=== PATIENT | male | born 1975 | race Caucasian/White ===

== ENCOUNTER → 2018-08-07 09:17 | Outpatient (CLI) | payer OTHER, SELFPAY ==
--- NOTE | 2018-08-07 09:21 | US_ITS ---
STUDY: ABDOMINAL ULTRASOUND - RIGHT UPPER QUADRANT REASON FOR VISIT: Male, 43 years old. Elevated LFTs TECHNIQUE: Ultrasound evaluation of the right upper quadrant was performed with real-time and static wood-scale imaging. TECHNICAL QUALITY: Adequate. COMPARISON: None. FINDINGS: Liver: The liver measures 13 cm. There is increased echogenicity of the liver. The bile ducts are within normal limits. There is hepatic color flow. The direction of portal flow is hepatopetal. There is no demonstrated mass lesion. Gallbladder: Normal distended gallbladder. The gallbladder wall measures 2.4 mm. There is a negative sonographic Tsang's sign. There is no pericholecystic fluid. There are multiple polyps. Common Bile Duct (C.B.D.): The common bile duct measures 3.6 mm. Pancreas: Normal size of the head, body and tail of the pancreas. There is normal echogenicity of the pancreas. There is no demonstrated pancreatic mass or cyst. Right Kidney: Normal size of the right kidney. The right kidney measures 11.6 x 6 x 5.6 cm. Normal renal cortex. The right cortex measures 1.9 cm. There is no demonstrated renal mass or cyst. There is no right hydronephrosis. US/Liver IMPRESSION: Mild nonspecific fatty infiltration of the liver. Multiple gallbladder polyps If concern for significant gallbladder disease HIDA scan with CCK stimulation would be helpful for further assessment Electronically Signed: Azeem Anderson MD at 19:55 EDT , Service support ,
== END ==
PROVIDERS: Family Provider Nurse Practitioner; PCP Nurse Practitioner; Referring Provider Nurse Practitioner; Visit Provider Nurse Practitioner
DX: R74.8 Abnormal levels of other serum enzymes (principal); Z78.9 Other specified health status
CPT/HCPCS: 76705

== ENCOUNTER → 2018-08-18 13:10 | Outpatient (CLI) | payer OTHER, SELFPAY ==
[2018-08-18 13:40] LABS: PSA,Total- Diagnostic 3.86 ng/mL (0.0-4.0)
== END ==
PROVIDERS: Family Provider Nurse Practitioner; PCP Nurse Practitioner; Referring Provider Nurse Practitioner; Visit Provider Nurse Practitioner
DX: R97.20 Elevated prostate specific antigen [PSA] (principal)
CPT/HCPCS: 84153

== ENCOUNTER → 2019-06-11 13:49 | Outpatient (CLI) | payer OTHER, SELFPAY ==
--- NOTE | 2019-06-11 13:58 | RAD_ITS ---
STUDY: X-RAY CHEST REASON FOR EXAM: Male, 43 years old. Abnormal lung sounds TECHNIQUE: PA and lateral views of the chest. COMPARISON: None. FINDINGS: The lungs are clear and expanded. Scattered calcified granulomas. There is no demonstrated pleural abnormality. Normal size heart. Normal mediastinum and bernie. There is prominence of the pulmonary hilar arteries without peripheral pulmonary vascular congestion, suggesting pulmonary hypertension. Normal visualized aortic arch and descending thoracic aorta. Normal visualized thoracic spine. Normal visualized ribs, clavicles, and shoulders. There is no demonstrated abnormality of the visualized soft tissue structures of the upper abdomen. RAD/Chest PA and Lateral IMPRESSION: Prominence of the pulmonary arteries bilaterally. Scattered calcified granulomas. Electronically Signed: Ry Marrfuo, at 15:04 EST , Service support ,
== END ==
PROVIDERS: PCP Nurse Practitioner; Referring Provider Internal Medicine; Visit Provider Internal Medicine
DX: R09.89 Other specified symptoms and signs involving the circulatory and respiratory systems (principal)
CPT/HCPCS: 71046

== ENCOUNTER 2024-05-15 11:26 | Day surgery (SDC) | payer OTHER, SELFPAY ==
[2024-05-15] VITALS (9 sets, daily range): BP systolic 61–136; BP diastolic 49–82; PULSE 89–107; RESP 16; TEMP 36.2–36.6; O2SAT 94–98; BMI 32.8
--- NOTE | 2024-05-15 11:51 | PCM.HP.STD ---
[facility] - General General Date of Admission: 05/15/24 Date of Service: 05/15/24 Chief Complaint: screening colon HPI Narrative SAY AVALOS, is a 48 M who presents for screening colonoscopy. He has never had a colonoscopy in the past. He only takes testosterone, pantoprazole and aspirin on a daily basis. [facility] Medical History Wears contact lenses GERD (gastroesophageal reflux disease) HTN (hypertension) Home Medications ?Medication ?Instructions ?Recorded ?Last Taken ?Type aspirin 81 mg tablet,delayed 81 mg PO QDAY 02/27/24 05/14/24 History release (Adult Low Dose Aspirin) lisinopril 40 mg tablet 40 mg PO QDAY 02/27/24 Unknown History pantoprazole 40 mg tablet,delayed 40 mg PO QDAY 02/27/24 Unknown History release testosterone cypionate 200 mg/mL 200 mg IM QWEEK 05/12/24 Unknown History intramuscular oil Allergy/AdvReac Type Severity Reaction Status Date / Time No Known Allergies Allergy Verified 05/15/24 11:42 Social History household members: spouse current occupational status: employed Smoking Status: Never smoker substance use type: does not use ROS Constitutional Constitutional: Denies fatigue, fever(s), poor appetite, weight gain or weight loss Gastrointestinal Gastrointestinal: Denies belching, bloating, change in bowel habits, change in stool character, chewing difficulty, coffee ground emesis, constipation, cramping, diarrhea, dyspepsia, dysphagia, early satiety, excessive flatus, fecal incontinence, heartburn, hematemesis, hematochezia, hemorrhoids, loose stools, melena, nausea, odynophagia, rectal bleeding, tenesmus, vomiting or weight changes Vital Signs Vital Signs Vital Signs: 05/15/24 11:42 05/15/24 11:42 Temperature 97.2 F L Temperature Source Temporal Pulse Rate 101 H Respiratory Rate 16 Respiratory Pattern Normal Blood Pressure 136/82 H Blood Pressure Mean 100 Blood Pressure Source Monitor Blood Pressure Position Semi-Fowlers Blood Pressure Location Left Arm Pulse Ox 98 Oxygen Delivery Method Room Air Weight Weight: 235 lb 14.314 oz Body Mass Index (BMI) 32.8 Physical Exam Const alert, oriented x3, no apparent distress and healthy appearing General Appearance: cooperative GI normal to inspection, nondistended, normoactive bowel sounds, soft to palpation, non-tender and non-distended Percussion: normal to percussion Rectal Exam: deferred Assessment & Plan Assessment/Plan (1) Encounter for screening for malignant neoplasm of colon: PLAN: He was explained alternatives, benefits, risk including not withstanding bleeding, infection, sepsis, perforation, need for emergent urgent . He will have an ASA of 3.
--- NOTE | 2024-05-15 12:15 | PCM.PRE.AN2 ---
ASA Classification* ASA Classification ASA Classification: 2 Assessment & Plan Anesthesia* Anesthesia Assessment Anesthesia Assessment: Discussed sedation and/or anesthesia options, risks, benefits, and alternatives with patient/parents/legal guardian/POA. Questions invited. The patient/parents/legal guardian/POA seems to understand and agrees to proceed with anesthesia plan. Reviewed the physical assessment, medical history, allergy history and patient home medications list prior to surgery/procedure/anesthetic and documented any changes. Performed airway and anesthesia risk assessments. 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 When Was Last Pacemaker Check QUESTION #4 FULL TEXT: You/Your Family Experience fever (hyperthermia) with Anesthesia Last Oral Intake Last Oral intake: Last Oral Intake NPO since 07:00 05/15/24 11:42 Meds taken in AM with sips of water? Meds patient instructed to take am of surgery PONV PONV - electrical engineering designer: PONV - electrical engineering designer Female No 05/12/24 13:15 HX of Motion Sickness No 05/12/24 13:15 HX of N/V After Surgery No 05/12/24 13:15 Non-Smoker Yes 05/12/24 13:15 Duration of Surgery greater No 05/12/24 13:15 than 60 minutes Number of Risk Factors 1 05/12/24 13:15 PONV Score Low Risk 05/12/24 13:15 Height & Weight Height & Weight: Anesthesia: Height & Weight Height 5 ft 11 in 05/15/24 11:42 Weight: 107 kg 05/15/24 11:42 Body Mass Index (BMI) 32.8 05/15/24 11:42 Respiratory Assessment Respiratory Assessment - electrical engineering designer: Respiratory Tract Infection Hx - electrical engineering designer Hx Respiratory Tract Infection No 05/12/24 13:15 STOP Sleep Apnea STOP Sleep Apnea - electrical engineering designer: STOP Sleep Apnea - electrical engineering designer Hx Hypertension Yes: CONTROLLED WITH MEDS 05/12/24 13:15 Hx Sleep Apnea No 05/12/24 13:15 CPAP BIPAP Do you snore loudly (louder Yes 05/12/24 13:15 than talking or can be heard Do you often feel tired/ No 05/12/24 13:15 fatigued/ sleepy during daytime? Has anyone observed you stop Yes 05/12/24 13:15 breathing during sleep? STOP Results Positive 05/12/24 13:15 QUESTION #5 FULL TEXT : Do you snore loudly (louder than talking or can be heard through closed doors)? Tobacco Use History Tobacco Use History - electrical engineering designer: Tobacco Use History - electrical engineering designer Tobacco Use Smoking Status Never smoker 05/12/24 13:15 Hx Tobacco Use No 05/12/24 13:15 Years Smoking Packs Smoked per Day Smoking Cessation Date was within the last 15 years Hx Smoking Cessation Date Hx Smoking Cessation Counseling Hematologic Medial History Hematologic Hx - electrical engineering designer: Hematologic Medical Hx - laboratory miller Hx of Blood Transfusion No 05/12/24 13:15 Hx of Transfusion in last 3 No 05/12/24 13:15 Months Date of Last Transfusion (if within last 3 months) Ever experience any problems No 05/12/24 13:15 with transfusion(s)? Specify any problems Hx of Preganancy in last 3 N/A 05/12/24 13:15 Months Nurse Filling Out Transfusion [id number] 05/12/24 13:15 & Questions: Date: 05/12/24 05/12/24 13:15 Time: 13:18 05/12/24 13:15 Patient unable to answer at this time (ie. confused, unrespo /Reproduction History /Reproductive History - electrical engineering designer: /Reproductive Hx- electrical engineering designer Hx Now Gestational Age (in weeks): EDC: Hx Hx Para Hx Section SAB PFSH Medical History Wears contact lenses GERD (gastroesophageal reflux disease) HTN (hypertension) Home Medications ?Medication ?Instructions ?Recorded ?Last Taken ?Type aspirin 81 mg tablet,delayed 81 mg PO QDAY 02/27/24 05/14/24 History release (Adult Low Dose Aspirin) lisinopril 40 mg tablet 40 mg PO QDAY 02/27/24 Unknown History pantoprazole 40 mg tablet,delayed 40 mg PO QDAY 02/27/24 Unknown History release testosterone cypionate 200 mg/mL 200 mg IM QWEEK 05/12/24 Unknown History intramuscular oil Allergy/AdvReac Type Severity Reaction Status Date / Time No Known Allergies Allergy Verified 05/15/24 11:42 Social History household members: spouse current occupational status: employed Smoking Status: Never smoker substance use type: does not use Review of Systems (Anesthesia) ROS Narrative System reviewed and no additional complaints, except as documented.
--- NOTE | 2024-05-15 13:07 | OP.COLON_ITS ---
Patient Name: Lopez Boston Procedure Date: 05/15/2024 12:34 PM Date of : 1975 Age: 48 Procedure: Colonoscopy Indications: Screening for colorectal malignant neoplasm Providers: Andi Alcaraz DO Referring MD: Arnel Membreno Medicines: Monitored Anesthesia Care Patient Profile: This is a 48 year old male. Refer to note in patient chart for documentation of history and physical. Last Colonoscopy: none. The patient's first colonoscopy is today. Complications: No immediate complications. Procedure: Pre-Anesthesia Assessment: - Prior to the procedure, a History and Physical was performed, and patient medications and allergies were reviewed. The patient is competent. The risks and benefits of the procedure and the sedation options and risks were discussed with the patient. All questions were answered and informed consent was obtained. Patient identification and proposed procedure were verified in the pre-procedure area. Mental Status Examination: alert and oriented. Airway Examination: normal oropharyngeal airway and neck mobility. Respiratory Examination: clear to auscultation. CV Examination: normal. Prophylactic Antibiotics: The patient does not require prophylactic antibiotics. Prior Anticoagulants: The patient has taken no anticoagulant or antiplatelet agents except for NSAID medication. ASA Grade Assessment: II - A patient with mild systemic disease. After reviewing the risks and benefits, the patient was deemed in satisfactory condition to undergo the procedure. The anesthesia plan was to use monitored anesthesia care (MAC). Immediately prior to administration of medications, the patient was re-assessed for adequacy to receive sedatives. The heart rate, respiratory rate, oxygen saturations, blood pressure, adequacy of pulmonary ventilation, and response to care were monitored throughout the procedure. The physical status of the patient was re-assessed after the procedure. After I obtained informed consent, the scope was passed under direct vision. Throughout the procedure, the patient's blood pressure, pulse, and oxygen saturations were monitored continuously. The Colonoscope was introduced through the anus and advanced to the cecum, identified by appendiceal orifice and ileocecal valve. The colonoscopy was performed without difficulty. The patient tolerated the procedure well. The ileocecal valve, appendiceal orifice, and rectum were photographed. Scope In: 12:42:36 PM Scope Withdrawal Time 0 hours 13 minutes 34 seconds Scope Out: 12:59:29 PM Total Procedure Duration Time 0 hours 16 minutes 53 seconds Findings: The perianal and digital rectal examinations were normal. A few small-mouthed diverticula were found in the recto-sigmoid colon and sigmoid colon. The exam was otherwise without abnormality on direct and retroflexion views. Impression: - Diverticulosis in the recto-sigmoid colon and in the sigmoid colon. - The examination was otherwise normal on direct and retroflexion views. - No specimens collected. Recommendation: - Discharge patient to home. - Resume previous diet. - Continue present medications. - Await pathology results. - Repeat colonoscopy in 10 years for screening purposes. Procedure Code(s): --- Professional --- G0121, Colorectal cancer screening; colonoscopy on individual not meeting criteria for high risk CPT copyright 2021 [employer]. All rights reserved. The codes documented in this report are preliminary and upon butter printer review may be revised to meet current compliance requirements. Andi Alcaraz DO 05/15/2024 1:06:49 PM This report has been signed electronically. Number of Addenda: 0 Note Initiated On: 05/15/2024 12:34 PM
--- NOTE | 2024-05-15 13:07 | OP.CCLET_ITS ---
05/15/2024 Arnel Membreno Re : Colonoscopy procedure for Lopez Boston Dear Alex This procedure was performed on Wednesday, May 15, 2024. My impressions and recommendations are as follows: Impressions : - Diverticulosis in the recto-sigmoid colon and in the sigmoid colon. - The examination was otherwise normal on direct and retroflexion views. - No specimens collected. Recommendations : - Discharge patient to home. - Resume previous diet. - Continue present medications. - Await pathology results. - Repeat colonoscopy in 10 years for screening purposes. My findings are described in the full procedure note, which is enclosed. If I can be of further assistance, please feel free to contact me at . Sincerely, Andi Alcaraz, 05/15/2024 1:06:49 PM This report has been signed electronically.
--- NOTE | 2024-05-15 13:08 | PCM.POST.ANE ---
Anesthesia: Postop Eval I Current Vital Signs Temperature: 97.5 F Pulse Rate: 107 Blood Pressure: 96/59 Respiratory Rate: 16 Pulse Ox: 96 Oxygen Delivery Method: Room Air Assessment Airway patent: Yes Spontaneous unlabored respirations: Yes Mental status: Asleep nausea: No Vomiting: No Anesthesia Complication: No Fluid Hydration Crystalloid volume administer (ml): 40 Total IV fluid infused: 40 Progress Note Anesthesia document: Postop Eval 1 completed: Yes
--- NOTE | 2024-05-15 13:51 | PCM.POSTANE2 ---
Anesthesia Postop Eval I Sum Postop Eval Completion status Anesthesia document: Postop Eval 1 completed: Yes Anesthesia Postop Eval I Summary Anesthesia Postop Eval I Summary: Anesthesia Postop Eval I: Assessment Summary Airway patent Yes 05/15/24 13:09 [email or web address] Spontaneous unlabored Yes 05/15/24 13:09 [email or web address] respirations Mental status Asleep 05/15/24 13:09 [email or web address] nausea No 05/15/24 13:09 [email or web address] Vomiting No 05/15/24 13:09 [email or web address] Anesthesia Postop Eval I: Fluid Summary Crystalloid volume administer 40 05/15/24 13:09 [email or web address] (ml) Colloids volume administered ( ml) Blood Product volume administered (ml) Total IV fluid infused 40 05/15/24 13:09 [email or web address] Anesthesia Postop Eval I: Summary Notes Anesthesia Complication No 05/15/24 13:09 [email or web address] Anesthesia Complication Comment: Post-operative progress note Anesthesia: Postop Eval II Evaluation Mental status: Awake and Calm Pain Level: 0 nausea: No Vomiting: No
== END 2024-05-15 13:53 | disposition home or self-care (01) ==
LOC: EN 11:28 → AC 11:30
PROVIDERS: PCP Nurse Practitioner Family; Referring Provider Nurse Practitioner Family; Visit Provider Internal Medicine Gastroenterology
PROC: 0DJD8ZZ Inspection of Lower Intestinal Tract, Via Natural or Artificial Opening Endoscopic (ICD-10-PCS; CPT 45378; principal; 2024-05-15 12:25)
DX: Z12.11 Encounter for screening for malignant neoplasm of colon (principal); K57.30 Diverticulosis of large intestine without perforation or abscess without bleeding; K21.9 Gastro-esophageal reflux disease without esophagitis; I10 Essential (primary) hypertension; Z79.82 Long term (current) use of aspirin; Z79.899 Other long term (current) drug therapy
CPT/HCPCS: 45378; A4216; J2405

== ENCOUNTER → 2025-04-02 | Outpatient (CLI) | payer OTHER, SELFPAY ==
--- NOTE | 2025-04-02 12:09 | ECHOD_ITS ---
Reason For Study Reason For Study: DYSPNEA/SOB Procedure This was a 2D Doppler, Color Flow transthoracic echocardiogram. Exam performed in department. Left Ventricle Normal LV size. The estimated ejection fraction is 55 %. No evidence for diastolic dysfunction. No regional wall motion abnormalities noted. Right Ventricle Normal RV size. Normal systolic function. Atria The left and right atria are normal. No doppler evidence for ASD. Mitral Valve There is no mitral valve stenosis. No mitral valve insufficiency. Tricuspid Valve There is no tricuspid stenosis. Unable to estimate RV systolic pressure due to inadequate jet, pulmonary artery pressure probably normal. Aortic Valve Trisinus/trileaflet aortic valve. There is no aortic stenosis. No aortic valve insufficiency. Pulmonic Valve There is no pulmonic valvular stenosis. No pulmonic valve insufficiency. Great Vessels Normal sized aortic root. Pericardium/Pleural No pericardial effusion. MMode/2D Measurements & Calculations LVIDd: 5.4 cm IVSd: 0.88 cm asc Aorta Diam: 3.8 cm LVIDs: 3.9 cm LVPWd: 0.93 cm RVDd: 3.4 cm FS: 27.1 % LAV(MOD-bp): 40.3 ml LVAd ap4: 27.6 cm2 LVAd ap2: 36.1 cm2 LAV(MOD-bp) Indexed: 17.6 ml/m2 LVLd ap4: 9.3 cm LVLd ap2: 10.6 cm LAV(MOD-sp2): 37.6 ml EDV(MOD-sp4): 68.2 ml EDV(MOD-sp2): 105.7 ml LAV(MOD-sp4): 39.2 ml EDV(sp4-el): 70.0 ml EDV(sp2-el): 104.4 ml LVAs ap4: 16.8 cm2 LVAs ap2: 21.7 cm2 LVLs ap4: 8.6 cm LVLs ap2: 8.9 cm ESV(MOD-sp4): 31.0 ml ESV(MOD-sp2): 46.2 ml ESV(sp4-el): 27.8 ml ESV(sp2-el): 44.7 ml EF(MOD-sp4): 54.5 % EF(MOD-sp2): 56.3 % EF(sp4-el): 60.3 % SV(MOD-sp4): 37.2 ml SV(MOD-sp2): 59.6 ml EDV(MOD-bp): 91.2 ml SI(MOD-sp4): 16.3 ml/m2 SI(MOD-sp2): 26.1 ml/m2 ESV(MOD-bp): 38.3 ml EF(MOD-bp): 58.0 % SV(sp4-el): 42.2 ml LA dimension(2D): 3.4 cm LA A4 area: 15.7 cm2 RA A4 area: 14.4 cm2 TAPSE: 1.6 cm Time Measurements MV dec time: 0.16 sec Doppler Measurements & Calculations MV E max gian: 83.5 cm/sec Lat Peak E' Gian: 8.5 cm/sec Med Peak E' Gian: 9.6 cm/sec MV A max gian: 99.8 cm/sec E/E' lat: 9.8 E/E' med: 8.7 MV E/A: 0.84 Ao V2 max: 136.8 cm/sec LV V1 max: 94.3 cm/sec MV dec slope: 512.4 cm/sec2 Ao max P.5 mmHg LV V1 max P.6 mmHg Ao V2 mean: 100.9 cm/sec LV V1 mean P.1 mmHg Ao mean P.6 mmHg LV V1 mean: 68.5 cm/sec Ao V2 VTI: 23.0 cm LV V1 VTI: 16.0 cm AV (velocity ratio): 0.70 PA V2 max: 76.0 cm/sec ECHO/Echo Complete Interpretation Summary The estimated ejection fraction is 55 %. No evidence for diastolic dysfunction. Ordering Physician: Daniel Almaguer Referring Physician: Luyl Johnson Performed By: Chetna Messina RDCS
--- NOTE | 2025-04-04 13:37 | STRESSREP_ITS ---
Stress Test Report Date: 04/02/2025 Procedure: Exercise tolerance test Indications: Dyspnea Consent: Per the patient Procedure: The patient exercised on a Matthew protocol for 10 minutes and 7 seconds achieving a peak heart rate of 179 bpm (104% predicted maximal heart rate) with a peak blood pressure 184/90 mmHg and a peak MET capacity of approximately 13.4 MET's. The baseline ECG demonstrated normal sinus rhythm. The peak exercise ECG demonstrated no significant ischemic changes. [There were no cardiac dysrhythmias pretest, during exercise, or recovery]. The functional capacity was considered normal for age. The patient had no complaint of chest discomfort during exercise or recovery. The examination was discontinued secondary to achieving target heart rate. Impression: 1. Technically adequate (percent predicted maximal heart rate greater than 85%) exercise tolerance test 2. Stress test is negative for exercise-induced chest pain. 3. Stress test test is negative for exercise-induced EKG changes of ischemia. 4. Functional capacity is normal for age This note was generated with Theatricsation software. It may contain incorrect words, spelling, and punctuation that were not noted in checking the note before signing.
== END | disposition home or self-care (01) ==
LOC: CVS 12:08
PROVIDERS: PCP Nurse Practitioner Family; Referring Provider Internal Medicine; Visit Provider Internal Medicine
DX: R55 Syncope and collapse (principal); R06.09 Other forms of dyspnea
CPT/HCPCS: 93017; 93306